=== PATIENT | male | born 1985 | race Caucasian/White ===

== ENCOUNTER 2023-10-27 18:59 | Emergency (ER) | payer OTHER, SELFPAY ==
--- NOTE | ~2023-10-27 | CT_ITS ---
EXAMINATION: CT abdomen pelvis wo con DATE: 10/27/2023 19:29 INDICATION: Hematuria TECHNIQUE: Computed tomography (CT) of the abdomen and pelvis was performed without intravenous contr ast. Automated exposure control and iterative reconstruction technique were employed. The dose-length product was 409.27 mGy-cm. COMPARISON: None FINDINGS: Lung bases are clear. Heart size is normal. No pericardial or pleural effusion. Liver, gallbladder, s pleen, pancreas, bilateral adrenal glands and right kidney are normal. 3 mm nonobstructing stone at t he lower pole of the left kidney. No other urolithiasis in either kidney or along either normal-appea ring ureter. Bladder is normal. Mild prostatomegaly for age measuring 4.1 x 3.9 cm. Bowels including the appendix are normal. No free intraperitoneal gas or fluid. No pathologically enlarged abdominal o r pelvic lymphadenopathy. There is subarticular sclerosis along the bilateral sacroiliac joints with suggestion of few tiny erosions along the right sacral joint. Bones are otherwise unremarkable. IMPRESSION: 1. 3 mm nonobstructing left renal stone. 2. Mild prostatomegaly. 3. Bilateral mild sacroiliitis with differential including degenerative osteoarthritis, ankylosing sp ondylitis, enteropathic arthritis, rheumatoid arthritis, reactive arthritis or psoriatic arthritis. Reviewed, dictated and finalized at location A. [employer] IMPRESSION: 1. 3 mm nonobstructing left renal stone. 2. Mild prostatomegaly. 3. Bilateral mild sacroiliitis with differential including degenerative osteoar thritis, ankylosing spondylitis, enteropathic arthritis, rheumatoid arthritis, reactive arthritis or psoriatic arthritis.
[2023-10-27 19:01] VITALS: BP 180/104; PULSE 110; RESP 18; TEMP 36.6; O2SAT 100
--- NOTE | 2023-10-27 19:50 | ED.MALEGU ---
HPI - Male Genitourinary General Chief complaint: Urogenital-Male Stated complaint: BLOOD IN SEMEN Time Seen by Provider: 10/27/23 19:10 History of Present Illness HPI Narrative: Patient is a 38-year-old male who presents ER with concerns for blood in his urine and semen. He masturbated earlier today and his ejaculate was grossly bloody. He reports that looked entirely like blood in was not just specks. Right now or later he urinated and there was blood in his urine. an hour after urination he did have sudden abdominal cramping followed by 2 episodes of diarrhea which was then followed by an episode of vomiting. He has had no symptoms since then. No fevers or chills or sweats. He is sexually active with 1 woman does not believe he is at risk for STI. No urethral discharge. No testicular pain. Review of Systems Constitutional: Constitutional: Denies chills, Denies fatigue and Denies fever(s) Gastrointestinal: Gastrointestinal: Reports abdominal pain, Reports diarrhea, Reports nausea and Reports vomiting Genitourinary: Genitourinary: Reports hematuria, Denies dysuria, Denies penile discharge, Denies testicular pain and Denies urinary frequency PMFSH Past Medical History Medical History (Updated 10/27/23 @ 21:17 by Izaiah Esquivel MD) Healthy adult male Surgical History Surgical History (Updated 10/27/23 @ 21:13 by Izaiah Esquivel MD) H/O vasectomy Exam Narrative: GENERAL: Well-appearing, well-nourished, and in no acute distress. HEAD: Normocephalic, atraumatic. CHEST: Clear to auscultation. No respiratory distress. HEART: Regular rate and rhythm. Normal peripheral pulses. ABDOMEN: Soft, nontender, nondistended,. EXTREMITIES: Normal range of motion. No edema. SKIN: Warm, dry, no rash. NEURO: Alert and oriented x3. PSYCH: Normal mood and affect. Course Course Emergency Course: discussed with urology. Likely prostatitis recommends 3 weeks of Bactrim. Recommend baseline blood work to rule out coagulopathy. Will need outpatient cysto. Patient educated on treatment plan and verbalized understanding. Vital Signs Vital signs: Vital Signs Temperature 97.9 F 10/27/23 19:01 Pulse Rate 110 H 10/27/23 19:01 Respiratory Rate 18 10/27/23 19:01 Blood Pressure 180/104 H 10/27/23 19:01 Pulse Oximetry 100 10/27/23 19:01 Oxygen Delivery Room Air 10/27/23 19:01 Temperature 97.9 F 10/27/23 19:01 Pulse Rate 110 H 10/27/23 19:01 Respiratory Rate 18 10/27/23 19:01 Blood Pressure 180/104 H 10/27/23 19:01 Pulse Oximetry 100 10/27/23 19:01 Oxygen Delivery Room Air 10/27/23 19:01 MDM - Male Genitourinary Lab Data 10/27/23 21:11 10/27/23 21:11 Labs: Lab Results 10/27/23 10/27/23 Range/Units 19:38 21:11 WBC 10.9 H (4.5-10.0) K/mm3 RBC 5.71 (4.6-6.20) M/mm3 Hgb 17.0 (14.0-18.0) g/dL Hct 50.3 (42.0-52.0) % MCV 88.1 (80-100) fl MCH 29.8 (26-34) pg MCHC 33.8 (32-36) g/dl RDW 12.6 (11.5-14.5) % Plt Count 315 (150-375) k/mm3 MPV 9.7 (7.4-10.4) fl Immature Gran % (Auto) 0.4 (0-0.5) % Neut % (Auto) 69.5 (45.5-73.1) % Lymph % (Auto) 24.0 (18.3-44.2) % [place] % (Auto) 5.6 (2.6-8.5) % Eos % (Auto) 0.1 (0-4.4) % Baso % (Auto) 0.4 (0.2-1.2) % Lymph # (Auto) 2.62 (0.9-3.2) K/mm3 [place] # (Auto) 0.6 (0.1-0.6) K/mm3 Eos # (Auto) 0.0 (0-0.3) K/mm3 Baso # (Auto) 0.0 (0.0-0.1) K/mm3 Abs Immat Gran (auto) 0.04 H (0.00-0.031) K/mm3 Absolute Neuts (auto) 7.6 H (1.3-6.7) K/mm3 Absolute Nucleated RBC 0.0 (0.0-0.012) K/mm3 Nucleated RBC % 0.0 (0.0-0.2) % PT 13.4 (11.1-14.7) Seconds INR 1.0 APTT 24.3 (22.3-36.8) SECONDS Sodium 142 (137-145) mmol/L Potassium 4.2 (3.4-5.0) mmol/L Chloride 104 (98-107) mmol/L Carbon Dioxide 25 (22-30) mmol/L Anion Gap 13 (8-16) mmol/L BUN 9 (9-20) mg/dL Creatinine 0.90 (0.7-1.3) mg/dL
[2023-10-27 19:55] LABS: Appearance Urine Turbid (Clear); Bacteria Urine None Seen /hpf; Bilirubin Urine 1+ (Negative); Blood Urine 3+ (Negative); Color Urine Dark Yellow (Yellow); Glucose Urine UA Negative (Negative); Ketones Urine 1+ mg/dL (Negative); Leukocyte Esterase Ur Trace LEU/UL (Negative); Mucus Urine Present /lpf; Need Manual Microscopic Reviewed; Nitrate Urine Negative (Negative); Non Pathogenic Casts >20; Protein Urine 1+ mg/dL (Negative); RBC Urine 21-50 /hpf (0-2); Squamous Epithelial Cell Urine Occasional /hpf (Few); WBC Urine 0-5 /hpf; pH Urine 5.5 (5.0-9.0)
[2023-10-27 19:57] LABS: Add Urine Microscopic? YES
[2023-10-27 21:17] LABS: Basophils Percent Auto 0.4 % (0.2-1.2); Eosinophils Percent Auto 0.1 % (0-4.4); Hematocrit 50.3 % (42.0-52.0); Immature Granulocyte Absolute 0.04 K/mm3 (0.00-0.031); Immature Granulocyte Percent A 0.4 % (0-0.5); Lymphocytes Absolute Auto 2.62 K/mm3 (0.9-3.2); Mean Corpuscular HGB Conc 33.8 g/dl (32-36); Mean Corpuscular Hemoglobin 29.8 pg (26-34); Mean Corpuscular Volume 88.1 fl (80-100); Mean Platelet Volume 9.7 fl (7.4-10.4); Monocytes Absolute Auto 0.6 K/mm3 (0.1-0.6); Monocytes Percent Auto 5.6 % (2.6-8.5); Neutrophils Absolute Auto 7.6 K/mm3 (1.3-6.7); Neutrophils Percent Auto 69.5 % (45.5-73.1); Platelet Count Result 315 k/mm3 (150-375); Red Blood Count 5.71 M/mm3 (4.6-6.20); Red Cell Distribution Width 12.6 % (11.5-14.5); White Blood Count 10.9 K/mm3 (4.5-10.0)
[2023-10-27 21:30] LABS: Partial Thromboplastin Time 24.3 SECONDS (22.3-36.8); Prothrombin Time 13.4 Seconds (11.1-14.7)
[2023-10-27 21:33] LABS: Alanine Aminotransferase 27 U/L (6-50); Albumin Level 4.7 g/dL (3.5-5.1); Alkaline Phosphatase 108 U/L (38-126); Anion Gap 13 mmol/L (8-16); Aspartate Amino Transferase 32 U/L (17-59); Bilirubin,Total 0.8 mg/dL (0.2-1.3); Blood Urea Nitrogen 9 mg/dL (9-20); Calcium 9.7 mg/dL (8.4-10.2); Carbon Dioxide 25 mmol/L (22-30); Chloride 104 mmol/L (98-107); Estimated CRCL calculation 104 ml/min; Estimated Glomerular Filt Rate > 60; Glucose 100 mg/dL (65-110); Potassium 4.2 mmol/L (3.4-5.0); Sodium 142 mmol/L (137-145)
[2023-10-27 22:11] VITALS: BP 175/108; PULSE 88; RESP 14; O2SAT 98
== END 2023-10-27 22:12 | disposition home or self-care (01) ==
PROVIDERS: Emergency Provider Emergency Medicine
DX: N41.0 Acute prostatitis (principal); N20.0 Calculus of kidney; N40.0 Benign prostatic hyperplasia without lower urinary tract symptoms; M46.1 Sacroiliitis, not elsewhere classified
CPT/HCPCS: 36415; 74176; 80053; 81001; 85025; 85610; 85730; 99284

== ENCOUNTER 2023-10-31 13:46 | Outpatient (CLI) | payer OTHER, SELFPAY ==
--- NOTE | ~2023-10-31 | XR_ITS ---
XR lumbar spine 2-3V DATE: 10/31/2023 14:10 INDICATION: Low back pain. Right sacroiliitis. TECHNIQUE: AP, lateral, coned lateral lumbosacral views COMPARISON: None FINDINGS: Normal alignment of the lumbar spine. No fracture or bone destruction or spondylolisthesis. The lumbar pedicles are well preserved. Lumbar and lumbosacral sacral interspaces are well preserved . The sacroiliac joints appear normal; no erosive change or ankylosis. IMPRESSION: No significant abnormality Reviewed, dictated and finalized at location B. [employer] IMPRESSION: No significant abnormality
== END 2023-10-31 13:47 | disposition home or self-care (01) ==
PROVIDERS: PCP Emergency Medicine; Visit Provider Emergency Medicine
DX: M54.50 Low back pain, unspecified (principal); M53.3 Sacrococcygeal disorders, not elsewhere classified
CPT/HCPCS: 72100

== ENCOUNTER 2024-01-17 11:01 | Outpatient (CLI) | payer OTHER, SELFPAY ==
--- NOTE | ~2024-01-17 | CT_ITS ---
CT of the Abdomen and Pelvis: Indication: Hematuria Technique: 2.5 mm axial scans were obtained through the abdomen and pelvis prior to and following in travenous administration of 130 cc of Omnipaque 350. Dose reduction technique was used on this scan b y utilizing automated exposure control and iterative reconstruction technique. The dose-length produc t (DLP) was 1281.96 mGy-cm. COMPARISON: 10/27/2023 Findings: Scans through the lung bases are unremarkable. The liver, spleen, pancreas, gallbladder, adrenals and right kidney are within normal limits. 3 mm no nobstructing left renal stone present. No evidence of aortic aneurysm. No lymphadenopathy. No bowel obstruction or bowel wall thickening. There is no evidence to suggest acute appendicitis. Images through the pelvis were performed. Urinary bladder unremarkable. Prostate gland mildly enlarge d. Impression: 3 mm nonobstructing left renal stone. Mildly enlarged prostate gland. Reviewed, dictated and finalized at location . Impression: 3 mm nonobstructing left renal stone. Mildly enlarged prostate gland.
[2024-01-17 11:16] LABS: Estimated Glomerular Filt Rate > 60
== END 2024-01-17 11:02 ==
LOC: MICIMG 11:02
PROVIDERS: PCP Urology; Visit Provider Urology
DX: N20.0 Calculus of kidney (principal); N40.0 Benign prostatic hyperplasia without lower urinary tract symptoms
CPT/HCPCS: 74178; Q9967